=== PATIENT | male | born 1970 | race Caucasian/White ===

== ENCOUNTER 2017-12-17 19:07 | Emergency (ER) | payer OTHER ==
[2017-12-17] MEDS ORDERED: HYDROmorphONE/DILAUDID 2 MG/ML INJ IVP ONE ×2 (19:25→21:00)
[2017-12-17] MEDS ORDERED: NS 1,000 ML IV ONE ×2 (19:25→21:27)
[2017-12-17 19:32] LABS: PLATELET COUNT 235 10^3/uL (150-400)
[2017-12-17] MEDS ORDERED: ONDANSETRON 4 MG/2 ML VIAL IVP ONE ×2 (20:06→21:00)
[2017-12-17] MEDS ORDERED: KETOROLAC 30 MG/1 ML SDV IVP ONE (20:06)
[2017-12-17] MEDS ORDERED: TAMSULOSIN HCL 0.4 MG CAP PO ONE (20:38)
[2017-12-17] MEDS ORDERED: ONDANSETRON 4 MG/2 ML VIAL ONE (20:47)
[2017-12-17] MEDS ORDERED: ONDANSETRON 4MG PREPACK#2 BTL TAKEHOME ONE (20:58)
[2017-12-17] MEDS ORDERED: OXYCODONE/APAP 5/325MG PREPACK#4 BTL TAKEHOME ONE (20:58)
--- NOTE | 2017-12-17 20:58 | EDPHY ---
H & P Stated Complaint: RLQ abd pain Time Seen by Provider: 12/17/17 19:20 HPI/ROS: Chief complaint: Abdominal pain History of present illness: This is a 47-year-old male who presents to the emergency department for evaluation of abdominal pain. Patient reports the sudden onset of pain in the right, lower aspect of his abdomen just prior to arrival. He describes a sharp pain. Pain radiates up and around towards his back. He denies precipitating factors. He denies alleviating factors. He denies other associated signs or symptoms including no fevers, no nausea, vomiting or diarrhea, no urinary symptoms. Review of systems: A 10 point review of systems was obtained and other than described above was negative - Personal History Current Tetanus/Diphtheria Vaccine: Unsure Current Tetanus Diphtheria and Acellular Pertussis (TDAP): Unsure - Medical/Surgical History Hx Asthma: No Hx Chronic Respiratory Disease: No Hx Diabetes: No Hx Cardiac Disease: No Hx Renal Disease: No Hx Cirrhosis: No Hx Alcoholism: No Hx HIV/AIDS: No Hx Splenectomy or Spleen Trauma: No Other PMH: Celiac. - Social History Smoking Status: Never smoked - Physical Exam Exam: General Appearance: Alert, appears mildly uncomfortable. Eyes: Pupils equal and round no pallor or injection. ENT, Mouth: Mucous membranes moist. Respiratory: There are no retractions, lungs are clear to auscultation. Cardiovascular: Regular rate and rhythm. Gastrointestinal: Abdomen is soft and non tender, no masses, bowel sounds normal. Neurological: Alert and oriented x4. Strength and sensation intact and symmetrical. Skin: Warm and dry, no rashes. Musculoskeletal: Neck is supple non tender. Extremities are symmetrical, full range of motion. Psychiatric: Patient is oriented X 3, there is no agitation. Constitutional: Initial Vital Signs Temperature (C) 37.0 C 12/17/17 19:12 Heart Rate 63 12/17/17 19:12 Respiratory Rate 17 12/17/17 19:12 Blood Pressure 141/85 H 12/17/17 19:12 O2 Sat (%) 96 12/17/17 19:12 O2 Delivery Mode Room Air O2 (L/minute) 4 Allergies/Adverse Reactions: No Known Allergies Allergy (Unverified 07/15/10 10:32) Home Medications: Medication Instructions Recorded Ondansetron Odt [Zofran Odt] 4 mg PO Q4PRN PRN #10 tab 12/17/17 Tamsulosin HCl [Flomax 0.4 MG (*)] 0.4 mg PO DAILY 5 Days cap 12/17/17 oxyCODONE/APAP 5/325 [Percocet 1 tab PO Q6 #10 tab 12/17/17 5/325] Medical Decision Making - Diagnostics Imaging Results: Imaging Impressions Abdomen/Pelvis CT 12/17/17 19:26 Impression: 1. Mild to moderate right hydronephrosis due to 5 x 4 mm calculus in the proximal ureter. 2. Right nephrolithiasis. 3. Increasing umbilical hernia containing only fat. 4. Sigmoid diverticulosis. Findings discussed with emergency department physician commercial assistant, MANNY Perez on December 17, 2017 at 8:08 p.m. Attention: This CT examination is specifically designed to evaluate patients who are clinically suspected of having acute obstructive uropathy. This examination does not use radiographic contrast, and as such, provides only a limited evaluation of the abdomen, pelvis, and retroperitoneum. If there is further clinical suspicion for pathological conditions other than obstructive uropathy, a complete CT evaluation of the abdomen and pelvis utilizing intravenous, oral, and rectal contrast should be considered. Imaging: Discussed imaging studies w/ call center nurse Radiologist ED Course/Re-evaluation: Patient seen under the supervision of my secondary supervising physician Dr. Juvenal Roper. Patient presents for abdominal pain. He is noted to have a kidney stone, approximately 5 x 4 mm. He is IV hydrated. Symptomatically treated although it did take a number of interventions to get his pain under control. Ultimately his pain is under control, he is tolerating oral challenges. He will be discharged home. Home care is discussed. He is asked to follow up with Urology next week for recheck and referral information is provided. Strict return precautions are given. The patient voiced understanding and agreement with the plan. Differential Diagnosis: Included but not limited to urinary tract infection, kidney stone, appendicitis , colitis, diverticulitis, testicular disorders - Data Points Laboratory Results: Laboratory Results 12/17/17 19:27 12/17/17 19:27 12/17/17 12/17/17 12/17/17 20:20 19:27 19:27 WBC 8.13 10^3/uL 10^3/uL (3.80-9.50) RBC 5.55 10^6/uL 10^6/uL (4.40-6.38) Hgb 15.5 g/dL g/dL (13.7-17.5) Hct 46.8 % % (40.0-51.0) MCV 84.3 fL fL (81.5-99.8) MCH 27.9 pg pg (27.9-34.1) MCHC 33.1 g/dL g/dL (32.4-36.7) RDW 12.9 % % (11.5-15.2) Plt Count 235 10^3/uL 10^3/uL (150-400) MPV 9.2 fL fL (8.7-11.7) Neut % (Auto) 61.8 % % (39.3-74.2) Lymph % (Auto) 23.9 % % (15.0-45.0) [place] % (Auto) 10.5 % % (4.5-13.0) Eos % (Auto) 2.8 % % (0.6-7.6) Baso % (Auto) 0.6 % % (0.3-1.7) Nucleat RBC Rel Count 0.0 % % (0.0-0.2) Absolute Neuts (auto) 5.03 10^3/uL 10^3/uL (1.70-6.50) Absolute Lymphs (auto) 1.94 10^3/uL 10^3/uL (1.00-3.00) Absolute Monos (auto) 0.85 10^3/uL H 10^3/uL (0.30-0.80) Absolute Eos (auto) 0.23 10^3/uL 10^3/uL (0.03-0.40) Absolute Basos (auto) 0.05 10^3/uL 10^3/uL (0.02-0.10) Absolute Nucleated RBC 0.00 10^3/uL 10^3/uL (0-0.01) Immature Gran % 0.4 % % (0.0-1.1) Immature Gran # 0.03 10^3/uL 10^3/uL (0.00-0.10) Sodium 147 mEq/L H mEq/L (135-145) Potassium 4.0 mEq/L mEq/L (3.5-5.2) Chloride 107 mEq/L mEq/L (97-110) Carbon Dioxide 27 mEq/l mEq/l (22-31) Anion Gap 13 mEq/L mEq/L (8-16) BUN 10 mg/dL mg/dL (7-23) Creatinine 0.8 mg/dL mg/dL (0.7-1.3) Estimated GFR > 60 Glucose 130 mg/dL H mg/dL (70-100) Calcium 9.6 mg/dL mg/dL (8.5-10.4) Urine Color YELLOW Urine Appearance HAZY Urine pH 5.0 (5.0-7.5) Ur Specific [place] 1.021 (1.002-1.030) Urine Protein NEGATIVE (NEGATIVE) Urine Ketones NEGATIVE (NEGATIVE) Urine Blood 3+ H (NEGATIVE) Urine Nitrate NEGATIVE (NEGATIVE) Urine Bilirubin NEGATIVE (NEGATIVE) Urine Urobilinogen NEGATIVE EU EU (0.2-1.0) Ur Leukocyte Esterase NEGATIVE (NEGATIVE) Urine RBC 50-182 /hpf H /hpf (0-3) Urine WBC 3-5 /hpf H /hpf (0-3) Ur Epithelial Cells NONE SEEN /lpf /lpf (NONE-1+) Calcium Oxalate Crystal PRESENT /hpf /hpf (NONE-1+) Urine Mucus 1+ /lpf /lpf (NONE-1+) Urine Glucose NEGATIVE (NEGATIVE) Medications Given: Discontinued Medications Acetaminophen (Tylenol) 1,000 mg PO EDNOW ONE Stop: 12/17/17 21:28 Last Admin: 12/17/17 21:48 Dose: 1,000 mg Hydromorphone HCl (Dilaudid) 1 mg IVP EDNOW ONE Stop: 12/17/17 19:26 Last Admin: 12/17/17 19:34 Dose: 1 mg Hydromorphone HCl (Dilaudid) 0.5 mg IVP EDNOW ONE Stop: 12/17/17 21:01 Last Admin: 12/17/17 21:03 Dose: 0.5 mg Sodium Chloride (Ns) 1,000 mls @ 0 mls/hr IV EDNOW ONE; Wide Open PRN Reason: Protocol Stop: 12/17/17 19:26 Last Admin: 12/17/17 19:35 Dose: 1,000 mls Lidocaine HCl 200 mg/ Sodium (Chloride) 120 mls @ 600 mls/hr IV EDNOW ONE Stop: 12/17/17 21:38 Last Admin: 12/17/17 21:49 Dose: 120 mls Sodium Chloride (Ns) 1,000 mls @ 3,000 mls/hr IV EDNOW ONE Stop: 12/17/17 21:46 Last Admin: 12/17/17 21:50 Dose: 1,000 mls Ketorolac Tromethamine (Toradol) 30 mg IVP EDNOW ONE Stop: 12/17/17 20:07 Last Admin: 12/17/17 20:24 Dose: 30 mg Ondansetron HCl (Zofran) 4 mg IVP EDNOW ONE Stop: 12/17/17 20:07 Last Admin: 12/17/17 20:24 Dose: 4 mg Ondansetron HCl (Zofran Odt 4 Mg Prepack#2) 1 btl TAKEHOME EDNOW ONE Stop: 12/17/17 20:59 Last Admin: 12/17/17 22:57 Dose: 1 btl Ondansetron HCl (Zofran) 4 mg IVP EDNOW ONE Stop: 12/17/17 21:01 Last Admin: 12/17/17 21:03 Dose: 4 mg Oxycodone/Acetaminophen (Percocet 5/325mg Prepack#4) 1 btl TAKEHOME EDNOW ONE Stop: 12/17/17 20:59 Last Admin: 12/17/17 23:00 Dose: 1 btl Tamsulosin HCl (Flomax) 0.4 mg PO EDNOW ONE Stop: 12/17/17 20:39 Last Admin: 12/17/17 20:44 Dose: 0.4 mg Departure - Departure Disposition: Home, Routine, Self-Care Clinical Impression: Kidney stone on right side Condition: Good Instructions: Kidney Stones (ED) Additional Instructions: Follow-up with Urology for continued evaluation and care Drink plenty of fluids to stay hydrated In regards to pain control see the following: Use ibuprofen [600] mg [3] times a day for the next 2-3 days for pain In addition You have been prescribed [[place]] for pain. [[place]] contains Tylenol, do not take extra Tylenol/acetaminophen/Apap with it. It is sedating. You can use Zofran for nausea and vomiting Take Flomax to facilitate passage of the stone, please note side effects can includes dizziness If symptoms worsen or new symptoms develop return to the emergency room for recheck Referrals: PRETTY PAGAN [Primary Care Provider] - As per Instructions Lidya Ryan MD [Medical Doctor] - As per Instructions Prescriptions: Ondansetron Odt [Zofran Odt] 4 mg PO Q4PRN PRN #10 tab PRN Reason: Nausea oxyCODONE/APAP 5/325 [Percocet 5/325] 1 tab PO Q6 #10 tab Tamsulosin HCl [Flomax 0.4 MG (*)] 0.4 mg PO DAILY 5 Days cap
[2017-12-17] MEDS ORDERED: ACETAMINOPHEN 500 MG TAB PO ONE (21:27)
[2017-12-17] MEDS ORDERED: LIDOCAINE 1% 200 MG in NS 100 ML IV ONE (21:27)
[2017-12-17 21:59] VITALS: TEMP 98.1
[2017-12-17 22:57] VITALS: BP 155/85; PULSE 60; RESP 20; O2SAT 91
== END 2017-12-17 23:03 | disposition home or self-care (01) ==
DX: N20.0 Calculus of kidney (principal); E86.9 Volume depletion, unspecified
CPT/HCPCS: 96374; J1170; J1885; J2405

== ENCOUNTER → 2018-03-27 | Outpatient (CLI) | payer OTHER | LOC: FIMAGING 08:25 | PROVIDERS: ATTEND Internal Medicine Nephrology | DX: N20.0 Calculus of kidney (principal) ==

== ENCOUNTER 2018-04-24 08:44 | Emergency (ER) | payer OTHER ==
[2018-04-24] MEDS ORDERED: HYDROmorphONE/DILAUDID 2 MG/ML INJ IVP ONE (09:23)
[2018-04-24] MEDS ORDERED: NS 1,000 ML IV ONE (09:23)
[2018-04-24] MEDS ORDERED: ONDANSETRON 4 MG/2 ML VIAL IVP ONE (09:23)
--- NOTE | 2018-04-24 09:28 | EDPHY ---
H & P Time Seen by Provider: 04/24/18 09:01 HPI/ROS: HPI Right flank pain. History of kidney stones. 47-year-old male from Urgent Care. This patient has a history of kidney stones. He reports 2 episodes of kidney stone pain 1 last Tuesday and then a week ago last Tuesday self resolving after about 4-5 hours. He reports onset of right flank pain with radiation to the right lower abdomen yesterday morning. It has persisted. He has taken some Percocet yesterday with some relief of the pain. He has had associated nausea and vomiting. This pain is typical of his kidney stone pain. He was seen here back in November of this year with a similar presentation. No gross hematuria. Vomiting described as nonbilious and nonbloody. No fever. ROS: Constitutional: No fever, no chills. No weakness. Eyes: No discharge. No changes in vision. ENT: No sore throat. No nasal congestion or rhinorrhea. Respiratory: No cough. No shortness of breath. Cardiac: No chest pain, no palpitations. Gastrointestinal: As above, no diarrhea. Genitourinary: No hematuria. No dysuria or increased frequency with urination. Musculoskeletal: As. No neck pain. No myalgias or arthralgias. Skin: No rashes. Neurological: No headache. No focal weakness or altered sensation. Past medical history: Kidney stones. Crohn's disease. Umbilical hernia. Social history: Nonsmoker. No alcohol. Here by himself. Physical Exam: General Appearance: Alert, he appears uncomfortable. This patient is responding to questions appropriately and in full sentences. This patient appears well-hydrated and well-nourished. Eyes: Pupils equal and round no pallor or injection. No lid edema, erythema or injection. Respiratory: There are no retractions, lungs are clear to auscultation with good air movement bilaterally. Cardiovascular: Regular rate and rhythm. No murmur. Gastrointestinal: Abdomen is soft with vague right lower quadrant tenderness on palpation, umbilical hernia is nontender on palpation, otherwise no masses, bowel sounds present. No focal tenderness at McBurney's point. No Patten sign. Neurological: Motor sensory function is grossly intact. Cranial nerves are normal. Gait is normal. Skin: Warm and dry, no rashes. Musculoskeletal: Right CVA tenderness on palpation. Extremities are symmetrical. All joints range without pain or impingement. Psychiatric: No agitation. No depression. Database: EKG: Imaging: CT abdomen and pelvis with out contrast: Significant for 3.7 mm right-sided UVJ stone with moderate hydronephrosis. No other significant pathology. Procedures: Emergency department course: Vital signs reviewed. He is moderately hypertensive. Vital signs otherwise normal. IV established. He has no medication allergies in no contraindications to NSAIDs. He was started on IV normal saline with 1 L to be given over the next hour. He was initially started on IV hydromorphone 1 mg and 4 mg of IV Zofran for pain and nausea relief. 10:00 a.m., the patient was re-evaluated. He was given 0.4 mg of oral Flomax and 30 mg of IV Toradol. He has a normal creatinine. At this time he does feel comfortable going home. I will prescribe him Vicodin. I will refer him to a urologist for further management. Return to emergency department precautions were thoroughly reviewed with him. All of his questions were answered. He was discharged in good condition. Differential Diagnosis: The differential diagnosis on this patient includes but is not limited to ureterolithiasis. Appendicitis, volvulus, cholecystitis, pyelonephritis unlikely. This represents a partial list of diagnoses considered. These considerations are based on history, physical exam, past history, reassessment and diagnostic testing. Smoking Status: Never smoked Constitutional: Initial Vital Signs Temperature (C) 37 C 04/24/18 08:48 Heart Rate 71 04/24/18 08:48 Respiratory Rate 17 04/24/18 08:48 Blood Pressure 156/82 H 04/24/18 08:48 O2 Sat (%) 95 04/24/18 08:48 O2 Delivery Mode Room Air O2 (L/minute) 2 Allergies/Adverse Reactions: No Known Allergies Allergy (Verified 04/24/18 08:47) Home Medications: Medication Instructions Recorded oxyCODONE/APAP 5/325 [Percocet 1 tab PO Q6 #10 tab 12/17/17 5/325] Hydrocodone/APAP 5/325 [[place] 1 - 2 tab PO Q4-6PRN PRN #20 tab 04/24/18 5/325 (*)] Ondansetron Odt [Zofran Odt 4 mg 4 mg PO Q4PRN PRN #10 tab 04/24/18 (*)] Tamsulosin HCl [Flomax 0.4 MG (*)] 0.4 mg PO DAILY #4 cap 04/24/18 Medical Decision Making - Diagnostics Imaging Results: Imaging Impressions Abdomen/Pelvis CT 04/24/18 09:24 Impression: 1. Obstructing 3.7 mm right UVJ stone with associated moderate hydroureteronephrosis. 2. Colonic diverticulosis. 3. Large fat-containing umbilical hernia. Findings and recommendations discussed with Wanda Sanders MD at 948 hour, 04/24/2018. - Data Points Laboratory Results: Laboratory Results 04/24/18 09:05 04/24/18 09:05 04/24/18 04/24/18 04/24/18 09:05 09:05 09:00 WBC 11.22 10^3/uL H 10^3/uL (3.80-9.50) RBC 5.54 10^6/uL 10^6/uL (4.40-6.38) Hgb 15.5 g/dL g/dL (13.7-17.5) Hct 45.4 % % (40.0-51.0) MCV 81.9 fL fL (81.5-99.8) MCH 28.0 pg pg (27.9-34.1) MCHC 34.1 g/dL g/dL (32.4-36.7) RDW 12.7 % % (11.5-15.2) Plt Count 241 10^3/uL 10^3/uL (150-400) MPV 9.7 fL fL (8.7-11.7) Neut % (Auto) 82.1 % H % (39.3-74.2) Lymph % (Auto) 8.1 % L % (15.0-45.0) [place] % (Auto) 8.5 % % (4.5-13.0) Eos % (Auto) 0.6 % % (0.6-7.6) Baso % (Auto) 0.3 % % (0.3-1.7) Nucleat RBC Rel Count 0.0 % % (0.0-0.2) Absolute Neuts (auto) 9.21 10^3/uL H 10^3/uL (1.70-6.50) Absolute Lymphs (auto) 0.91 10^3/uL L 10^3/uL (1.00-3.00) Absolute Monos (auto) 0.95 10^3/uL H 10^3/uL (0.30-0.80) Absolute Eos (auto) 0.07 10^3/uL 10^3/uL (0.03-0.40) Absolute Basos (auto) 0.03 10^3/uL 10^3/uL (0.02-0.10) Absolute Nucleated RBC 0.00 10^3/uL 10^3/uL (0-0.01) Immature Gran % 0.4 % % (0.0-1.1) Immature Gran # 0.05 10^3/uL 10^3/uL (0.00-0.10) Sodium 135 mEq/L mEq/L (135-145) Potassium 4.2 mEq/L mEq/L (3.3-5.0) Chloride 104 mEq/L mEq/L (97-110) Carbon Dioxide 21 mEq/l L mEq/l (22-31) Anion Gap 10 mEq/L mEq/L (8-16) BUN 17 mg/dL mg/dL (7-23) Creatinine 1.2 mg/dL mg/dL (0.7-1.3) Estimated GFR > 60 Glucose 132 mg/dL H mg/dL (70-100) Calcium 9.2 mg/dL mg/dL (8.5-10.4) Urine Color PALE YELLOW Urine Appearance CLEAR Urine pH 7.0 (5.0-7.5) Ur Specific [place] 1.006 (1.002-1.030) Urine Protein NEGATIVE (NEGATIVE) Urine Ketones NEGATIVE (NEGATIVE) Urine Blood 1+ H (NEGATIVE) Urine Nitrate NEGATIVE (NEGATIVE) Urine Bilirubin NEGATIVE (NEGATIVE) Urine Urobilinogen NEGATIVE EU EU (0.2-1.0) Ur Leukocyte Esterase NEGATIVE (NEGATIVE) Urine RBC 1-3 /hpf /hpf (0-3) Urine WBC 1-3 /hpf /hpf (0-3) Ur Epithelial Cells NONE SEEN /lpf /lpf (NONE-1+) Urine Glucose NEGATIVE (NEGATIVE) Medications Given: Discontinued Medications Hydromorphone HCl (Dilaudid) 1 mg IVP EDNOW ONE Stop: 04/24/18 09:24 Last Admin: 04/24/18 09:35 Dose: 1 mg Sodium Chloride (Ns) 1,000 mls @ 0 mls/hr IV EDNOW ONE; Wide Open PRN Reason: Protocol Stop: 04/24/18 09:24 Last Admin: 04/24/18 09:36 Dose: 1,000 mls Ondansetron HCl (Zofran) 4 mg IVP EDNOW ONE Stop: 04/24/18 09:24 Last Admin: 04/24/18 09:36 Dose: 4 mg Departure - Departure Disposition: Home, Routine, Self-Care Clinical Impression: Ureterolithiasis, Kidney stone on right side Condition: Good Instructions: Kidney Stones (ED) Additional Instructions: Read and follow provided instructions. Follow-up with Urology in 1-2 days for re-evaluation as discussed. Take medication as prescribed for nausea. Narcotic pain medication: 1-2 every 4-6 hours as needed for pain. Do not take ibuprofen, Aleve or other NSAIDs like medications for at least 24 hr. Return to the emergency department for worsening pain, vomiting and inability to keep fluids down, fever or other serious concerns. Referrals: Miguel Ángel Mancia MD [Medical Doctor] - As per Instructions Prescriptions: Hydrocodone/APAP 5/325 [[place] 5/325 (*)] 1 - 2 tab PO Q4-6PRN PRN #20 tab PRN Reason: Pain, Moderate Ondansetron Odt [Zofran Odt 4 mg (*)] 4 mg PO Q4PRN PRN #10 tab PRN Reason: For Nausea & Vomiting Tamsulosin HCl [Flomax 0.4 MG (*)] 0.4 mg PO DAILY #4 cap
[2018-04-24 09:34] LABS: PLATELET COUNT 241 10^3/uL (150-400)
[2018-04-24] MEDS ORDERED: TAMSULOSIN HCL 0.4 MG CAP PO ONE (09:57)
[2018-04-24] MEDS ORDERED: KETOROLAC 30 MG/1 ML SDV IVP ONE (10:06)
[2018-04-24 10:52] VITALS: BP 115/75
== END 2018-04-24 10:55 | disposition home or self-care (01) ==
DX: N20.2 Calculus of kidney with calculus of ureter (principal)
CPT/HCPCS: 96374; J1170; J1885; J2405